=== PATIENT | female | born 1965 | race Caucasian/White ===

== ENCOUNTER → 2016-08-18 | Outpatient (CLI) | payer BC | END | disposition home or self-care (01) | LOC: MW.CHFP 14:01 | PROVIDERS: ATTEND Nurse Practitioner Family | DX: J02.9 Acute pharyngitis, unspecified (principal) | CPT/HCPCS: 87081; 87880 ==

== ENCOUNTER 2024-03-19 08:38 | Day surgery (SDC) | payer BC ==
[~2024-03-19 08:38] MED LIST: Sodium Chloride 0.9% 10 ML Syringe FLUSH PRN; Sodium Chloride 0.9% 2.5 ML Syringe FLUSH PRN; Sodium Chloride 0.9% 20 ML SDV IV PRN
[2024-03-19] MEDS: Lactated Ringers 1,000 ML IV SCH (09:50)
[2024-03-19] MEDS ORDERED: Lidocaine 2% 5 ML SDV ONE (10:15)
[2024-03-19] MEDS ORDERED: Propofol 200 MG/20 ML SDV ONE (10:15)
[2024-03-19 12:39] VITALS: BP 100/62; PULSE 65
== END 2024-03-19 11:36 | disposition home or self-care (01) ==
LOC: MW.SDS 08:38
PROVIDERS: ATTEND Surgery
DX: Z12.11 Encounter for screening for malignant neoplasm of colon (principal); E78.00 Pure hypercholesterolemia, unspecified; F32.A Depression, unspecified; Z79.82 Long term (current) use of aspirin; Z79.899 Other long term (current) drug therapy
CPT/HCPCS: 45378; J2704; J7120; J3490